=== PATIENT | female | born 1990 | race Caucasian/White ===

== ENCOUNTER 2016-09-24 07:30 | Inpatient (IN) | payer MEDICAID, OTHER ==
[~2016-09-24] VITALS: Ht 154.9 cm; Wt 68.1 kg
[~2016-09-24 07:30] MED LIST: CEFAZOLIN 2 GM/50 ML (PMX) 50 ML IVPB ONE; LACTATED RINGER'S 1,000 ML IV* SCH
[2016-09-25] VITALS (26 sets, daily range): BP systolic 118–147; BP diastolic 73–88; PULSE 67–110; RESP 14–25; Ht 154.9 cm; Wt 68.1 kg
[2016-09-25] MEDS ORDERED: CEFAZOLIN 2 GM/50 ML (PMX) 50 ML IVPB ONE (06:00)
[2016-09-25] MEDS ORDERED: LACTATED RINGER'S 1,000 ML IV* SCH (06:00)
--- NOTE | 2016-09-25 07:27 | RADRPT ---
PROCEDURE: CT C-Spine without Contrast CLINICAL INDICATION: Preop TECHNIQUE: Transaxial images were obtained through the cervical spine on a multi sliced scanner wit hout contrast. Sagittal and coronal re-formations were subsequently reformatted. One or more of the following dose reduction techniques were used: - Automated exposure control. - Adjustment of the mA and/or kV according to patient size. - Use of iterative reconstruction technique. Radiation dose: CTDIvol = 21.61 mGy; DLP = 576.33 mGy-cm. COMPARISON: None FINDINGS: Osseous structures: Appear intact with no fracture or destructive process identified. Alignment: Align satisfactorily without subluxation. Disk spaces, endplates, and facet joints: Are well maintained. No significant disk bulge or herniat ion is identified. There is no significant stenosis to the central canal hour to a nerve root canal. Soft tissues: Are unremarkable. IMPRESSION: Unremarkable CT scan of the cervical spine. Physician Edmundo Date Time Electronically viewed and signed by Physician Edmundo on 09/25/2016 07:26 /
[2016-09-25] MEDS ORDERED: GELATIN SIZE 100 SPONGE ONE (07:38)
[2016-09-25] MEDS ORDERED: BUPIVACAINE 0.25% (MPF) 10 ML 10 ML VIAL ONE (07:38)
[2016-09-25] MEDS ORDERED: LIDOCAINE 1% (MPF) 30 ML INJ ONE (07:38)
[2016-09-25] MEDS ORDERED: BACITRACIN/POLYMYXIN 28.35 GM OINT TOP ONE (07:39)
[2016-09-25] MEDS ORDERED: POLYMYXIN/BACITRACIN 1L IRRIG ONE (07:39)
[2016-09-25] MEDS ORDERED: THROMBIN 5000 UNIT VIAL ONE (07:39)
[2016-09-25] MEDS ORDERED: BUPIVACAINE 0.25%/EPI (SDV) 10 ML INJ ONE (07:40)
[2016-09-25] MEDS ORDERED: ROCURONIUM 50 MG INJ ONE ×3 (07:52→10:39)
[2016-09-25] MEDS ORDERED: MIDAZOLAM 1 MG/ML 2 ML INJ ONE (07:52)
[2016-09-25] MEDS ORDERED: PROPOFOL 100 ML ONE ×4 (07:52→13:56)
[2016-09-25] MEDS ORDERED: SUCCINYLCHOLINE CHLORIDE 100 MG/5 ML SYG IV ONE (07:52)
--- NOTE | 2016-09-25 07:56 | HPN ---
Date/Time of Note Date/Time of Note DATE: 09/25/16 TIME: 07:55 Interval H&P Admission Note Pt. seen H&P reviewed: No system changes BRE RODRIGUEZ MD Sep 25, 2016 07:56
[2016-09-25] MEDS ORDERED: NORT10CA3 PO (08:04)
[2016-09-25] MEDS ORDERED: TOPI50CA5 PO (08:04)
[2016-09-25] MEDS ORDERED: OXYC500S2 PO (08:04)
--- NOTE | 2016-09-25 08:07 | HP ---
Date/Time of Note Date/Time of Note DATE: 09/25/16 TIME: 07:58 Assessment/Plan VTE Prophylaxis VTE Prophylaxis Intervention: anti-embolic stocking Lines/Catheters IV Catheter Type (from Nrs): Saline Lock Assessment/Plan Chief Complaint/Hosp Course 26 year-old female with right C2 schwannoma. OR today for resection, possible fusion. 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 The right tumor is large and encroaching upon the spinal cord. Patient denies any numbness, tingling, weakness, bowel or bladder issues. She reports some right sided neck discomfort. ROS Constitutional: no complaints Eyes: no complaints ENT: no complaints Respiratory: no complaints Cardiovascular: no complaints Gastrointestinal: no complaints Genitourinary: no complaints Musculoskeletal: neck pain, no complaints Skin: no complaints Neurologic: headache Endocrine: no complaints Lymphatic: no complaints Psychological: no complaints Immunologic: no complaints PMH/Family/Social Past Medical History Medical History: other (chronic headaches as child) Past Surgical History Past Surgical Hx: no surgical history Family History Significant Family History: no pertinent family hx, other (no history of bleeding disorders or nerve sheath tumors) Social History Alcohol Use: none Smoking Status: Never smoker Drug Use: none Exam/Review of Systems Vital Signs Vitals Vital Signs Date Time Temp Pulse Resp B/P Pulse Ox O2 Delivery O2 Flow Rate FiO2 09/25/16 07:01 96.9 78 20 124/82 100 Room Air Exam Constitutional: alert, oriented Psych: no complaints Head: normocephalic Eyes: EOMI, PERRL, nl conjunctiva Neck: other (mild right sided tenderness), supple Respiratory: clear to auscultation Cardiovascular: regular rate and rhythm Gastrointestinal: non-tender, soft Extremities: normal pulses Neurological: RESOURCE DEVELOPMENT DIRECTOR II-XII intact, DTR's symmetric, nl mental status, nl speech, nl strength, other Medications Medications Current Medications Lactated Ringer's (Lr) 1,000 ml @ 85 mls/hr [id number] IV* ; Start 09/25/16 at 06: 00; Stop 09/25/16 at 17:45 Home medications: Topamax, Percocet, Nortriptyline BRE RODRIGUEZ MD Sep 25, 2016 08:07
[2016-09-25] MEDS ORDERED: LABETALOL HCL 20MG INJ ONE (09:09)
[2016-09-25] MEDS ORDERED: CEFAZOLIN 1 GM INJ ONE ×3 (09:47→14:55)
[2016-09-25] MEDS ORDERED: NEOSTIGMINE 3 MG/3 ML SYRINGE ONE (10:55)
[2016-09-25] MEDS ORDERED: GLYCOPYRROLATE 0.4 MG INJ ONE (10:55)
[2016-09-25] MEDS ORDERED: METOCLOPRAMIDE 10 MG INJ ONE (12:08)
[2016-09-25] MEDS ORDERED: ONDANSETRON 4 MG INJ ONE (12:08)
[2016-09-25] MEDS ORDERED: DEXAMETHASONE 4 MG/ML 1 ML INJ ONE ×2 (12:09)
[2016-09-25] MEDS ORDERED: THROMBIN(HUM PLAS)/FIBRINOG/CA 5 ML VIAL TOP ONE (14:47)
--- NOTE | 2016-09-25 15:05 | RADRPT ---
Vent Rate: 71 bpm RR Interval: 0 msec [place] Interval: 126 msec QRS Duration: 100 msec QT Interval: 412 msec QTC Interval: 447 msec P-R-T [place]: 50 - 54 - 49 degrees Normal sinus rhythm Normal ECG Electronically Signed By: Pipo Wilson [id number]
--- NOTE | 2016-09-25 15:18 | RADRPT ---
PROCEDURE: Intraoperative fluoroscopy. CLINICAL INDICATION: Intraoperative fluoroscopy during cervical spine surgery. TECHNIQUE: 1 spot intraoperative fluoroscopic images were provided. The images were reviewed on a high-resolution PACS workstation. COMPARISON: None available FINDINGS: Multiple spot intraoperative fluoroscopic views were provided during cervical spine surgery. The im ages demonstrate metallic instrumentation projected C3 level. The total fluoroscopy time was 1.2 se conds. IMPRESSION: 1. Multiple spot intraoperative fluoroscopic views during cervical spine surgery were provided. 2. Please see operative report of the same day for further information. RPTAT: HGAS .Neal Gibson MD, Date Time Electronically viewed and signed by .Neal Gibson MD, on 09/25/2016 15:18 .S/
[2016-09-25] MEDS ORDERED: DIPHENHYDRAMINE 50 MG INJ IV PRN ×2 (15:30→18:30)
[2016-09-25] MEDS ORDERED: DIPHENHYDRAMINE 25 MG CAP PO PRN (15:30)
[2016-09-25] MEDS ORDERED: ACETAMINOPHEN 325 MG TAB PO PRN (15:30)
[2016-09-25] MEDS ORDERED: HYDROCODONE/APAP (5/325) TAB PO PRN (15:30)
[2016-09-25] MEDS ORDERED: CEPASTAT LOZENGE MT PRN (15:30)
--- NOTE | 2016-09-25 15:35 | OPPN ---
Date/Time of Note Date/Time of Note DATE: 09/25/16 TIME: 15:33 Operative Report Preoperative Diagnosis Right C2 schwannoma Postoperative Diagnosis Right C2 schwannoma Operation/Procedure Performed C1,C2 laminectomy for resection of schwannoma Provider: BRE RODRIGUEZ MD Anesthesia: general Estimated blood loss: 50 - 100 ml's Specimens tumor Grafts/Implants none Complications: None BRE RODRIGUEZ MD Sep 25, 2016 15:34
[2016-09-25] MEDS: morphine 4 MG/ML VIAL IV PRN ×4 (16:10→21:46)
[2016-09-25] MEDS: SOD CHLORIDE 0.9% 1,000 ML IV SCH (16:15)
[2016-09-25] MEDS: HYDROmorphONE 1 MG/ML SYG IV PRN (17:27)
[2016-09-25] MEDS: CEFAZOLIN 2 GM/50 ML (PMX) 50 ML IVPB SCH (17:36)
--- NOTE | 2016-09-25 18:00 | CONS ---
Date/Time of Note Date/Time of Note DATE: 09/25/16 TIME: 17:59 Assessment/Plan Assessment/Plan Chief Complaint/Hosp Course A/P S/P C2 SCHWANNOMA RESECTION PLAN PER SURGERY Problems: Consultation Date/Type/Reason Admit Date/Time Sep 25, 2016 at 05:50 Initial Consult Date Type of Consultation: MEDICINE 24 HR Interval Summary Constitutional: no complaints Exam/Review of Systems Vital Signs Vitals Vital Signs Date Time Temp Pulse Resp B/P Pulse Ox O2 Delivery O2 Flow Rate FiO2 09/25/16 16:30 99 25 141/81 97 09/25/16 16:00 99.6 Mask 6.0 Exam Neck: other (COLLAR+), supple Respiratory: clear to auscultation Cardiovascular: regular rate and rhythm Gastrointestinal: soft Musculoskeletal: nl extremities to inspection Extremities: normal pulses Neurological: TELEPHONE ADVICE NURSE II-XII intact Medications Medications Current Medications Cefazolin Sodium/ Dextrose (Ancef 2 Gm/50 ml (Pmx)) 50 ml @ 100 mls/hr Q8H IVPB Last administered on 09/25/16 17:36; Admin Dose 100 MLS/HR; Start 09/25/16 at 17:00; Stop 09/26/16 at 16:59 Hydromorphone HCl (Dilaudid) 0.5 mg Q6H PRN IV PAIN LEVEL 6-10 Last administered on 09/25/16 17:27; Admin Dose 0.5 MG; Start 09/25/16 at 15:30 Morphine Sulfate (morphine) 2 mg Q2H PRN IV PAIN LEVEL 6-10 Last administered on 09/25/16 16:10; Admin Dose 2 MG; Start 09/25/16 at 15:30 Acetaminophen/ Hydrocodone Bitart ([place] (5/325)) 1 tab Q6H PRN PO PAIN LEVEL 6 -10; Start 09/25/16 at 15:30 Oxycodone/ Acetaminophen (Percocet (5/ 325)) 1 tab Q6H PRN PO PAIN LEVEL 6-10; Start 09/25/16 at 15:30 Acetaminophen (Tylenol Tab) 650 mg Q6H PRN PO PAIN AND OR ELEVATED TEMP; Start 09/25/16 at 15:30 Diphenhydramine HCl (Benadryl) 25 mg Q6H PRN IV ITCHING; Start 09/25/16 at 15:30 Diphenhydramine HCl (Benadryl) 25 mg Q6H PRN PO ITCHING; Start 09/25/16 at 15:30 Ondansetron HCl (Zofran Inj) 4 mg Q6H PRN IV NAUSEA AND/OR VOMITING; Start 09/25 at 15:30 Pantoprazole 40 mg 40 mg DAILY@06 PO ; Start 09/26/16 at 06:00 Sodium Chloride (NS) 1,000 ml @ 100 mls/hr Q10H IV Last administered on t 16:15; Admin Dose 100 MLS/HR; Start 09/25/16 at 16:00 Phenol (Cepastat Lozenge) 1 lozenge PRN PRN MT SORE THROAT; Start 09/25/16 at 15 :30 Diazepam (Valium) 5 mg TID PRN PO muscle spasm; Start 09/25/16 at 15:30 REJI RANGEL MD Sep 25, 2016 18:00
[2016-09-25] MEDS ORDERED: ALBUMIN HUMAN 5% 250 ML IV PRN (18:30)
[2016-09-25] MEDS ORDERED: LABETALOL HCL 20MG INJ IV PRN (18:30)
[2016-09-25] MEDS ORDERED: morphine 10 MG INJ IV PRN (18:30)
[2016-09-25] MEDS ORDERED: ONDANSETRON 4 MG INJ IV PRN (18:30)
[2016-09-25] MEDS ORDERED: MEPERIDINE 25 MG INJ IV PRN (18:30)
[2016-09-25] MEDS ORDERED: FENTAnyl 50 MCG/ML VIAL IV PRN ×3 (18:30)
[2016-09-25] MEDS ORDERED: morphine 4 MG/ML VIAL IV PRN ×2 (18:30)
[2016-09-25] MEDS ORDERED: EPHEDrine SULFATE 50 MG/5 ML SYG IV PRN (18:30)
[2016-09-25] MEDS: ONDANSETRON 4 MG INJ IV PRN (21:01)
[2016-09-25] MEDS: METOCLOPRAMIDE 10 MG INJ IV PRN (21:46)
[2016-09-26] VITALS (30 sets, daily range): BP systolic 96–132; BP diastolic 66–100; PULSE 60–96; RESP 12–22
[2016-09-26] MEDS: HYDROmorphONE 1 MG/ML SYG IV PRN ×3 (00:07→14:10)
[2016-09-26] MEDS: SOD CHLORIDE 0.9% 1,000 ML IV SCH ×3 (02:32→22:00)
[2016-09-26] MEDS: CEFAZOLIN 2 GM/50 ML (PMX) 50 ML IVPB SCH ×2 (02:32→08:00)
[2016-09-26] MEDS: morphine 4 MG/ML VIAL IV PRN ×2 (02:33→07:50)
[2016-09-26] MEDS: PANTOPRAZOLE (EC) 40 MG TAB PO SCH (06:00)
[2016-09-26 06:08] LABS: BASOPHILS % 0.1 % (0.0-2.0); EOSINOPHILS % 0.1 % (0.0-7.0); HEMATOCRIT 33.2 % (37.0-47.0); HEMOGLOBIN 11.6 g/dl (12.0-16.0); LYMPHOCYTES # 0.9 10^3/ul (0.8-2.9); LYMPHOCYTES % 11.6 % (15.0-51.0); MEAN CORPUSCULAR HEMOGLOBIN 31.4 pg (29.0-33.0); MEAN CORPUSCULAR HGB CONC 34.9 g/dl (32.0-37.0); MEAN PLATELET VOLUME 12.4 fl (7.4-10.4); MONOCYTE # 0.7 10^3/ul (0.3-0.9); MONOCYTES % 9.6 % (0.0-11.0); NEUTROPHIL # 5.8 10^3/ul (1.6-7.5); NEUTROPHILS % 78.3 % (39.0-77.0); PLATELET COUNT 148 10^3/UL (140-415); RED BLOOD COUNT 3.69 10^6/ul (4.20-5.40); RED CELL DISTRIBUTION WIDTH 12.7 % (11.5-14.5); WHITE BLOOD COUNT 7.4 10^3/ul (4.8-10.8)
[2016-09-26 06:38] LABS: CALCIUM 8.7 mg/dl (8.4-10.2); CREATININE 0.46 mg/dl (0.44-1.00)
[2016-09-26] MEDS: ONDANSETRON 4 MG INJ IV PRN ×2 (08:47→19:58)
--- NOTE | 2016-09-26 08:56 | PN ---
Date/Time of Note Date/Time of Note DATE: 09/26/16 TIME: 08:51 Assessment/Plan Lines/Catheters IV Catheter Type (from Nrsg): A Line Choi in Place (from Nrsg): Yes Assessment/Plan Chief Complaint/Hosp Course 26 year-old female s/p C1,C2 laminectomy for schwannoma. Neurologically stable. Mostly pain control issues. D/c A-line, D/C Choi. incentive spirometer. Cont. observation. Head CT if symptoms worse but otherwise stable and expected post-operative. CAn transfer from ICU to med/surg once pain better controlled. Problems: Subjective 24 Hr Interval Summary Patient c/o of incisional/neck pain/ discomfort. Denies numbness, tingling or weakness. Feels pre-op headache may be better but difficult to tell. Denies fevers or chills. Some nausea. Exam/Review of Systems Vital Signs Vitals Vital Signs Date Time Temp Pulse Resp B/P Pulse Ox O2 Delivery O2 Flow Rate FiO2 09/26/16 08:20 Nasal Cannula 2.0 09/26/16 06:15 69 18 127/72 100 09/26/16 04:00 98.7 Intake and Output 09/25/16 09/25/16 09/26/16 15:00 23:00 07:00 Intake Total 2850 ml 740 ml Output Total 1405 ml 600 ml Balance 1445 ml 140 ml Exam Constitutional: alert, oriented Psych: nl mood/affect Head: normocephalic Neck: other (incision C/d/I, no evidence of CSF leakage. No fluctance.) Neurological: TRAIN CONTROL TECHNICIAN II-XII intact, nl speech, nl strength Results Result Diagram: 09/26/16 0508 09/26/16 0508 BRE RODRIGUEZ MD Sep 26, 2016 08:55
[2016-09-26] MEDS ORDERED: ACETAMINOPHEN 1000MG/100ML IV 100 ML IVPB SCH (09:00)
[2016-09-26] MEDS: morphine 1 MG/ML 30 ML (PCA) IV SCH ×2 (10:05→18:40)
[2016-09-26] MEDS: ACETAMINOPHEN 1000MG/100ML IV 100 ML IVPB SCH ×3 (10:47→21:44)
--- NOTE | 2016-09-26 13:13 | CONS ---
Date/Time of Note Date/Time of Note DATE: 09/26/16 TIME: 13:11 Assessment/Plan Assessment/Plan Chief Complaint/Hosp Course 1. s/p C1,C2 laminectomy for schwannoma. 2. Obesity Problems: Additional Assessment/Plan 1. transfer to /s 2. Continue LIGHTING EQUIPMENT OPERATOR pump 3. Continue clear liquid diet Consultation Date/Type/Reason Admit Date/Time Sep 25, 2016 at 05:50 Initial Consult Date 09/25/2016 Type of Consultation: Nephrology Reason for Consultation Dr Deal 24 HR Interval Summary Constitutional: improved Exam/Review of Systems Vital Signs Vitals Vital Signs Date Time Temp Pulse Resp B/P Pulse Ox O2 Delivery O2 Flow Rate FiO2 09/26/16 09:18 98.6 09/26/16 09:00 76 16 116/82 98 09/26/16 08:20 Nasal Cannula 2.0 Intake and Output 09/25/16 09/25/16 09/26/16 15:00 23:00 07:00 Intake Total 2850 ml 740 ml Output Total 1405 ml 600 ml Balance 1445 ml 140 ml Exam Constitutional: alert, oriented ENMT: nl external ears & nose Neck: supple Respiratory: clear to auscultation Cardiovascular: regular rate and rhythm Gastrointestinal: soft Results Result Diagram: 09/26/16 0508 09/26/16 0508 Results 24 hrs Laboratory Tests Test 09/26/16 05:08 White Blood Count 7.4 Red Blood Count 3.69 L Hemoglobin 11.6 L Hematocrit 33.2 L Mean Corpuscular Volume 90.0 Mean Corpuscular Hemoglobin 31.4 Mean Corpuscular Hemoglobin Concent 34.9 Red Cell Distribution Width 12.7 Platelet Count 148 Mean Platelet Volume 12.4 H Neutrophils % 78.3 H Lymphocytes % 11.6 L Monocytes % 9.6 Eosinophils % 0.1 Basophils % 0.1 Nucleated Red Blood Cells % 0.0 Neutrophils # 5.8 Lymphocytes # 0.9 Monocytes # 0.7 Eosinophils # 0.0 Basophils # 0.0 Nucleated Red Blood Cells # 0.0 Sodium Level 140 Potassium Level 4.0 Chloride Level 104 Carbon Dioxide Level 22 Anion Gap 18 H Blood Urea Nitrogen 4 L Creatinine 0.46 Glucose Level 104 Calcium Level 8.7 Medications Medications Current Medications Cefazolin Sodium/ Dextrose (Ancef 2 Gm/50 ml (Pmx)) 50 ml @ 100 mls/hr Q8H IVPB Last administered on 09/26/16 08:00; Admin Dose 100 MLS/HR; Start 09/25/16 at 17:00; Stop 09/26/16 at 16:59 Hydromorphone HCl (Dilaudid) 0.5 mg Q6H PRN IV PAIN LEVEL 6-10 Last administered on 09/26/16 05:56; Admin Dose 0.5 MG; Start 09/25/16 at 15:30 Acetaminophen/ Hydrocodone Bitart ([place] (5/325)) 1 tab Q6H PRN PO PAIN LEVEL 6 -10; Start 09/25/16 at 15:30 Oxycodone/ Acetaminophen (Percocet (5/ 325)) 1 tab Q6H PRN PO PAIN LEVEL 6-10; Start 09/25/16 at 15:30 Acetaminophen (Tylenol Tab) 650 mg Q6H PRN PO PAIN AND OR ELEVATED TEMP; Start 09/25/16 at 15:30 Diphenhydramine HCl (Benadryl) 25 mg Q6H PRN IV ITCHING; Start 09/25/16 at 15:30 Diphenhydramine HCl (Benadryl) 25 mg Q6H PRN PO ITCHING; Start 09/25/16 at 15:30 Ondansetron HCl (Zofran Inj) 4 mg Q6H PRN IV NAUSEA AND/OR VOMITING Last administered on 09/26/16 08:47; Admin Dose 4 MG; Start 09/25/16 at 15:30 Pantoprazole 40 mg 40 mg DAILY@06 PO ; Start 09/26/16 at 06:00 Sodium Chloride (NS) 1,000 ml @ 100 mls/hr Q10H IV Last administered on 02:32; Admin Dose 100 MLS/HR; Start 09/25/16 at 16:00 Phenol (Cepastat Lozenge) 1 lozenge PRN PRN MT SORE THROAT; Start 09/25/16 at 15 :30 Diazepam (Valium) 5 mg TID PRN PO muscle spasm; Start 09/25/16 at 15:30 Metoclopramide HCl (Reglan) 10 mg Q6H PRN IV NAUSEA Last administered on 21:46; Admin Dose 10 MG; Start 09/25/16 at 21:30 Morphine Sulfate (morphine) 0 MG/HR CONTINUOUS RATE 1 ... Q4PCA IV Last administered on 09/26/16 10:05; Admin Dose 30 MG; Start 09/26/16 at 09:00 Ketorolac Tromethamine 30 mg 30 mg Q6H PRN IV PAIN; Start 09/26/16 at 09:00; Stop 09/29/16 at 08:59 Acetaminophen (Ofirmev 1000mg/ 100ml Iv) 100 ml @ 400 mls/hr Q6H IVPB Last administered on 09/26/16 10:47; Admin Dose 400 MLS/HR; Start 09/26/16 at 10:00 MARK GARCIA Sep 26, 2016 13:13
--- NOTE | 2016-09-26 13:36 | OPR ---
DATE OF OPERATION: 09/25/2016 PREOPERATIVE DIAGNOSIS: Bilateral nerve sheath tumors. POSTOPERATIVE DIAGNOSIS: Bilateral nerve sheath tumors. OPERATION PERFORMED: 1. C1 and C2 laminectomy for resection of right C2 schwannoma. 2. Use of frameless stereotactic guidance (spinal) SURGEON: Joe Ragsdale M.D. ANESTHESIOLOGIST: Parviz Fink M.D. ANESTHESIA: General endotracheal. ESTIMATED BLOOD LOSS: 80 mL. DRAINS: None. SPECIMEN: Collected tumor for frozen and permanent. GRAFT IMPLANTS: None. COMPLICATIONS: None. DISPOSITION: Recovery. INDICATIONS: Patient is a 25-year-old female with a history of childhood headaches that had recently exacerbated. MRI was performed which showed bilateral nerve sheath tumors with a large tumor on the right that appeared to extend and encroach upon the spinal cord. Although it was not clear whether or not this lesion was the source of the patient's headache, given its size and growth treatment was recommended. Radial surgical versus open treatment was discussed and patient elected for surgical treatment. The risks, benefits, and alternatives to surgical intervention were discussed with the patient who elected for surgery. OPERATIVE PROCEDURE: The patient was brought to the OR. She was sedated, intubated, and anesthesia was successfully induced. Electrophysiologic monitoring was performed baseline potentials established. Perioperative antibiotics were given. Choi catheter was placed. Sequential compression devices were placed. The patient was placed in a prone position on the operative table on log roll gel pads. The patient had been placed in a Gomez frame and this was secured to the bed with the neck in a slightly flexed position. All pressure points were checked for appropriate padding. The patient was sterilely prepped and draped. After a surgical timeout the procedure commenced. A 10 blade knife was used to make an incision from the suboccipital area down to the neck. Bovie electrocautery was used to dissect through an avascular plane, the midline ligamentum nuchae down to the spinous process of C2. Self- retaining retractors were placed. Fluoroscopy was used to confirm the C2 level. Subperiosteal dissection was carried forth along the C1 and C2 lamina laterally to the lateral masses and then self-retaining retractors were then placed. A curette and blunt dissection was used to remove the soft tissue and the muscle over the interspace between C1 and C2 on the right. As this was a widened space and the tumor was directly visible underneath the curette was used to undermine the soft tissue and ligament of C1 and C2. BrainLAB was used for localization and this was registered on the C2 lamina. This was primarily helpful in these the lateral extent of the laminectomy, as well as the evaluation of bone of facet joints. A posterior laminectomy of C1 was performed. A partial bilateral laminectomy of the superior aspect of the C2 was performed and the inferior aspect of C2 was left in place to expose the central part of the thecal sac. Blunt dissection was used to remove the vascularity over the midline thecal sac, and laterally over the nerve sheath tumor. The tumor was directly visible. At this point, a microscope was brought in for microdissection. Midline incision of the thecal sac was made and the sutures were used to tack up the dura. The spinal cord could be seen directly below with bunched up dorsal fascicles of the nerve root of C2 being compressed. There is also a bulge that appeared to be extrathecal (but intradural) from a nerve sheath tumor that had grown medially, hence there did not appear to be a clear intrathecal component of the tumor, rather it appeared to be entirely extrathecal; nevertheless this had developed to involve the left side of the thecal sac. There was some envelopement of the dural interface to the nerve sheath of the tumor. Therefore, a T-type incision was made lateral along the length of the nerve sheath. This was initially carried from the thecal sac toward the nerve sheath, but there was an infolding, therefore a direct opening on the nerve sheath was made leaving the connection of the nerve sheath attached. This was because the takeoff of the nerve sheath appeared to be ventral and anterior to the posterior dentate ligament apparently due to tumor growth had rotated such that the takeoff of the nerve root was almost on the underside of the thecal sac when viewed posteriorly. There was some thickening of the nerve sheath and dura, but underneath there appeared to be clear tumor. A CUSA was brought in and the majority of the tumor that was external decavitated. At this point, the tumor that had been pushing anteriorly had appeared to be relieved, though again the tumor still effaced the dura of the lateral wall of thecal sac. A larger piece of the more lateral aspect of the tumor and the nerve sheath was able to be removed en bloc as one solid piece. There appeared to be some thickening distally on the nerve sheath though internally there did not appear to be any clear tumor left. Now working laterally than medially additional tumor was removed up to the interface of the thecal sac. Because of the location of the tumor on the thecal sac, it was felt that the dura would have to be completely incised to remove the tumor and given the location there was concern that this would be difficult if not reasonably possible to repair from an internal approach due to the presence of the spinal cord. Given the significant debulking and biopsy which the pathologist has determined was consistent with schwannoma it was felt best to leave any residual which could later be treated with radiosurgery given the significant decompression already achieved. The dura was closed with 5-0 Prolene on the microscope starting with the transverse incision that led through the nerve sheath and then the midline closed as well. Multiple Valsalva showed no significant drainage of fluid. Then the actual residual capsular dura was closed with 5-0 Prolene. Valsalva again performed and there was no evidence of CSF leak. The wound was copiously irrigated with bacitracin irrigation and then DuraSeal placed over the dura, as well as EvoSeal more laterally. The incision was then closed with 0 Vicryl suture and the fascia 2-0 interrupted Vicryl sutures subcutaneous tissue and 3-0 interrupted Vicryl sutures in the subcuticular layer, as well as a running 4-0 Monocryl suture. Dermabond was placed. Incision, allowed to dry. Sterile dressing applied. The patient was taken off the table, taken out of [place] and extubated. She was taken directly to the ICU. All sponge, needle, and cottonoid counts were reported correct at the end of the case. Electrophysiologic monitoring remained stable throughout the case. Dictated By: Joe Ragsdale MD /[email or web address] /Document#: [id number] EDUARD
[2016-09-26] MEDS: METOCLOPRAMIDE 10 MG INJ IV PRN (14:16)
[2016-09-26] MEDS: DIAZEPAM 5 MG TAB PO PRN (16:11)
--- NOTE | 2016-09-26 16:37 | QN ---
Documentation Comment [id number] REJI RANGEL MD Sep 26, 2016 16:37
--- NOTE | 2016-09-26 20:51 | HP ---
DATE OF ADMISSION: 09/25/2016 HISTORY OF PRESENT ILLNESS: The patient is a 26-year-old female with history of schwannoma of the neck. The patient underwent bilateral nerve sheath tumor schwannoma. The patient underwent right revision C1 and C2 laminectomy, resection of the right C3 schwannoma, and is being seen post procedure. The patient is complaining of pain in the neck area, but otherwise denies numbness and tingling. PAST MEDICAL HISTORY: Per family member, the patient is negative. ALLERGIES: NEGATIVE. FAMILY HISTORY: Noncontributory. SOCIAL HISTORY: None. MEDICATIONS: At home, the patient is on nortriptyline, the patient is on oxycodone, the patient is on Topamax. REVIEW OF SYSTEMS: HEENT: Unremarkable. RESPIRATORY: Unremarkable. CARDIOVASCULAR: Unremarkable. GASTROINTESTINAL: Unremarkable. EXTREMITIES: No numbness or tingling pain. NEUROLOGIC: Pain in the back/neck area. VERIFICATION LEAD: As mentioned above. PHYSICAL EXAMINATION: GENERAL: The patient is awake, alert, not in any distress. VITAL SIGNS: Stable. HEENT: Head is atraumatic, normocephalic. Pupils equal and reactive. NECK: No JVD. Neck has no edema. LUNGS: Clear. HEART: Normal. ABDOMEN: Soft, nontender. Bowel sounds present. EXTREMITIES: No cyanosis, clubbing, edema. NEUROLOGIC: The patient is awake, alert, no focal deficits. LABORATORY DATA: Not available. IMPRESSION: 1. Status post C1 and C2 schwannoma revision. 2. History of depression. PLAN: At this point is to follow dr gravelypostoperative care, follow laboratory data, incentive spirometry, DVT prophylaxis, orders were done. Dictated By: Sammy Deal MD /[email or web address]/katrina /Document#: [id number] EDUARD
[2016-09-27] MEDS: KETOROLAC 30 MG INJ IV PRN ×3 (00:16→22:19)
[2016-09-27] MEDS: SOD CHLORIDE 0.9% 1,000 ML IV SCH ×3 (01:38→17:25)
[2016-09-27 03:54] VITALS: BP 110/70; RESP 20
[2016-09-27] MEDS: PANTOPRAZOLE (EC) 40 MG TAB PO SCH (05:11)
[2016-09-27] MEDS: ACETAMINOPHEN 1000MG/100ML IV 100 ML IVPB SCH ×4 (05:11→21:38)
[2016-09-27] MEDS: morphine 1 MG/ML 30 ML (PCA) IV SCH (07:28)
[2016-09-27 07:47] VITALS: BP 110/71; RESP 20
[2016-09-27 08:16] LABS: CALCIUM 8.3 mg/dl (8.4-10.2); CREATININE 0.57 mg/dl (0.44-1.00); POTASSIUM 3.5 mmol/L (3.5-5.1)
--- NOTE | 2016-09-27 10:04 | PN ---
Date/Time of Note Date/Time of Note DATE: 09/27/16 TIME: 09:59 Assessment/Plan Lines/Catheters IV Catheter Type (from Nrsg): Saline Lock Choi in Place (from Nrsg): Yes Assessment/Plan Chief Complaint/Hosp Course 26 year-old female s/p C1,C2 laminectomy for schwannoma. Neurologically stable. Mostly pain control issues. incentive spirometer. Bowel program. PT/OT. Ambulate. Ween COURIER Will order more comfortable collar from credit card associate. Problems: Subjective 24 Hr Interval Summary Patient complaining of some headache but not as severe as pre-op, different. Denies numbness, tingling weakness. Reports neck pain but better than yesterday and shoulder pain with movement. Exam/Review of Systems Vital Signs Vitals Vital Signs Date Time Temp Pulse Resp B/P Pulse Ox O2 Delivery O2 Flow Rate FiO2 09/27/16 08:00 18 09/27/16 07:47 98.1 79 110/71 100 09/26/16 14:30 Room Air 09/26/16 08:20 2.0 Intake and Output 09/26/16 09/26/16 09/27/16 15:00 23:00 07:00 Intake Total 650 ml 620 ml 2110 ml Output Total 350 ml Balance 300 ml 620 ml 2110 ml Exam Constitutional: alert, oriented, well developed Head: atraumatic, normocephalic Neck: nuchal rigidity, other (incision C/d/I no drainage or swelling) Neurological: DIRECTOR AND PROFESSOR II-XII intact, nl mental status, nl speech, nl strength Results Result Diagram: 09/26/16 0508 09/27/16 0652 BRE RODRIGUEZ MD Sep 27, 2016 10:04
[2016-09-27] MEDS: ONDANSETRON 4 MG INJ IV PRN (10:15)
[2016-09-27] MEDS: OXYCODONE/ACETAMINOPHEN (5/325) TAB PO PRN ×2 (10:15→17:53)
[2016-09-27] MEDS: METOCLOPRAMIDE 10 MG INJ IV PRN (11:57)
--- NOTE | 2016-09-27 18:30 | PN ---
Date/Time of Note Date/Time of Note DATE: 09/27/16 TIME: 18:29 Assessment/Plan VTE Prophylaxis VTE Prophylaxis Intervention: other Lines/Catheters IV Catheter Type (from Nrsg): Saline Lock Urinary Cath still in place: Yes Reason Cath still needed: other (indicate) Assessment/Plan Chief Complaint/Hosp Course A/P S/P C2 SCHWANNOMA RESECTION NECK PAIN PLAN PER SURGERY AMBULATE PAIN MEDS Problems: Subjective 24 Hr Interval Summary Constitutional: other (NECK PAIN+) Cardiovascular: no complaints Gastrointestinal: no complaints Exam/Review of Systems Vital Signs Vitals Vital Signs Date Time Temp Pulse Resp B/P Pulse Ox O2 Delivery O2 Flow Rate FiO2 09/27/16 17:00 18 09/27/16 07:47 98.1 79 110/71 100 09/26/16 14:30 Room Air 09/26/16 08:20 2.0 Intake and Output 09/26/16 09/26/16 09/27/16 15:00 23:00 07:00 Intake Total 650 ml 620 ml 2110 ml Output Total 350 ml Balance 300 ml 620 ml 2110 ml Exam Respiratory: clear to auscultation Cardiovascular: regular rate and rhythm Gastrointestinal: soft Musculoskeletal: nl extremities to inspection Results Result Diagram: 09/26/16 0508 09/27/16 0652 Results 24 hrs Laboratory Tests Test 09/27/16 06:52 Sodium Level 140 Potassium Level 3.5 Chloride Level 102 Carbon Dioxide Level 27 Anion Gap 15 Blood Urea Nitrogen 3 L Creatinine 0.57 Glucose Level 93 Calcium Level 8.3 L Medications Medications Current Medications Hydromorphone HCl (Dilaudid) 0.5 mg Q6H PRN IV PAIN LEVEL 6-10 Last administered on 09/26/16 14:10; Admin Dose 0.5 MG; Start 09/25/16 at 15:30 Acetaminophen/ Hydrocodone Bitart ([place] (5/325)) 1 tab Q6H PRN PO PAIN LEVEL 6 -10; Start 09/25/16 at 15:30 Oxycodone/ Acetaminophen (Percocet (5/ 325)) 1 tab Q6H PRN PO PAIN LEVEL 6-10 Last administered on 09/27/16 17:53; Admin Dose 1 TAB; Start 09/25/16 at 15:30 Acetaminophen (Tylenol Tab) 650 mg Q6H PRN PO PAIN AND OR ELEVATED TEMP Last administered on 09/26/16 18:05; Admin Dose 650 MG; Start 09/25/16 at 15:30 Diphenhydramine HCl (Benadryl) 25 mg Q6H PRN IV ITCHING Last administered on 18:14; Admin Dose 25 MG; Start 09/25/16 at 15:30 Diphenhydramine HCl (Benadryl) 25 mg Q6H PRN PO ITCHING Last administered on 21:49; Admin Dose 25 MG; Start 09/25/16 at 15:30 Ondansetron HCl (Zofran Inj) 4 mg Q6H PRN IV NAUSEA AND/OR VOMITING Last administered on 09/27/16 10:15; Admin Dose 4 MG; Start 09/25/16 at 15:30 Pantoprazole 40 mg 40 mg DAILY@06 PO Last administered on 09/27/16 05:11; Admin Dose 40 MG; Start 09/26/16 at 06:00 Sodium Chloride (NS) 1,000 ml @ 100 mls/hr Q10H IV Last administered on 01:38; Admin Dose 100 MLS/HR; Start 09/25/16 at 16:00 Phenol (Cepastat Lozenge) 1 lozenge PRN PRN MT SORE THROAT; Start 09/25/16 at 15 :30 Diazepam (Valium) 5 mg TID PRN PO muscle spasm Last administered on 09/26/16 16 :11; Admin Dose 5 MG; Start 09/25/16 at 15:30 Metoclopramide HCl (Reglan) 10 mg Q6H PRN IV NAUSEA Last administered on 11:57; Admin Dose 10 MG; Start 09/25/16 at 21:30 Morphine Sulfate (morphine) 0 MG/HR CONTINUOUS RATE 1 ... Q4PCA IV Last administered on 09/27/16 07:28; Admin Dose 30 MG; Start 09/26/16 at 09:00 Ketorolac Tromethamine 30 mg 30 mg Q6H PRN IV PAIN Last administered on 13:14; Admin Dose 30 MG; Start 09/26/16 at 09:00; Stop 09/29/16 at 08:59 Acetaminophen (Ofirmev 1000mg/ 100ml Iv) 100 ml @ 400 mls/hr Q6H IVPB Last administered on 09/27/16t 15:36; Admin Dose 400 MLS/HR; Start 09/26/16 at 10:00 Docusate Sodium (Colace) 100 mg BID PO ; Start 09/27/16 at 21:00 REJI RANGEL MD Sep 27, 2016 18:30
[2016-09-27 20:00] VITALS: BP 127/79; RESP 18
[2016-09-27] MEDS: DIAZEPAM 5 MG TAB PO PRN (20:59)
[2016-09-27] MEDS: DOCUSATE SODIUM 100 MG CAP PO SCH (20:59)
[2016-09-28] MEDS: OXYCODONE/ACETAMINOPHEN (5/325) TAB PO PRN (01:03)
[2016-09-28 01:08] VITALS: BP 98/53; PULSE 85; RESP 18
[2016-09-28] MEDS: morphine 1 MG/ML 30 ML (PCA) IV SCH (03:10)
[2016-09-28] MEDS: SOD CHLORIDE 0.9% 1,000 ML IV SCH ×2 (04:00→14:00)
[2016-09-28] MEDS: ACETAMINOPHEN 1000MG/100ML IV 100 ML IVPB SCH ×3 (04:07→16:00)
[2016-09-28] MEDS: KETOROLAC 30 MG INJ IV PRN (05:42)
[2016-09-28] MEDS: PANTOPRAZOLE (EC) 40 MG TAB PO SCH (05:42)
[2016-09-28] MEDS ORDERED: LABETALOL HCL 20MG INJ ONE (08:00)
[2016-09-28] MEDS ORDERED: SEVOFLURANE 15 MIN ONE (08:00)
[2016-09-28] MEDS: DOCUSATE SODIUM 100 MG CAP PO SCH (08:12)
[2016-09-28] MEDS: HYDROCODONE/APAP (10/325) TAB PO PRN ×3 (08:12→16:21)
--- NOTE | 2016-09-28 08:12 | PN ---
Date/Time of Note Date/Time of Note DATE: 09/28/16 TIME: 08:10 Assessment/Plan Lines/Catheters IV Catheter Type (from Nrsg): Saline Lock Choi in Place (from Nrsg): No Assessment/Plan Chief Complaint/Hosp Course 26 year-old female s/p C1,C2 laminectomy for schwannoma. Neurologically stable. Mostly pain control issues, improving. D/C [employer] incentive spirometer. Bowel program. PT/OT. Ambulate. If pain controlled of IV, home today. f/u in 2 weeks. Problems: Subjective 24 Hr Interval Summary Patient feeling better today. Still has headache and neck pain but reports feeling less. Denies nausea, vomiting, numbness, tingling or weakness. Feels new hard collar more comfortable. Exam/Review of Systems Vital Signs Vitals Vital Signs Date Time Temp Pulse Resp B/P Pulse Ox O2 Delivery O2 Flow Rate FiO2 09/28/16 05:48 18 09/28/16 01:08 98.1 85 98/53 95 Room Air 09/26/16 08:20 2.0 Intake and Output 09/27/16 09/27/16 09/28/16 15:00 23:00 07:00 Intake Total 500 ml 2700 ml 625 ml Output Total 1200 ml Balance 500 ml 2700 ml -575 ml Exam Constitutional: alert, oriented, well developed Head: normocephalic Eyes: EOMI Neurological: [employer] II-XII intact, nl mental status, nl speech, nl strength Results Result Diagram: 09/26/16 0508 09/27/16 0652 BRE RODRIGUEZ MD Sep 28, 2016 08:12
[2016-09-28 08:16] VITALS: BP 114/79; RESP 19
--- NOTE | 2016-09-28 08:47 | RADRPT ---
PROCEDURE: CT Brain without contrast. CLINICAL INDICATION: Neurologic deficit TECHNIQUE: A CT of the brain was performed on multidetector high-resolution CT scanner utilizing a xial sections from the skull base through the vertex without contrast. One or more of the following dose reduction techniques were used: Automated exposure control, Adjustment of the mA and/or kV acc ording to patient size, and/or use of iterative reconstruction technique. DOSE: CTDI = 43 mGy and the DLP = 720 mGy-cm. COMPARISON: None available FINDINGS: Partially imaged posterior arch C1 resection with fluid collection in the dorsal soft tissues of the upper cervical spine at the surgical site measuring at least 2.7 x 3.5 cm. Small amount of pneumoce phalus is seen in the bilateral frontal extra-axial space. No acute intracranial hemorrhage, signifi cant mass effect or midline shift. The cerebral silva-white differentiation is grossly preserved. The ventricles are normal in size for age. No significant opacification of the visualized paranasal sin uses or mastoids. IMPRESSION: Partially imaged posterior arch C1 resection with fluid collection in the dorsal soft tissues of the upper cervical spine at the surgical site measuring at least 2.7 x 3.5 cm. Small amount of pneumocephalus is seen in the bilateral frontal extra-axial space. No acute intracranial hemorrhage, significant mass effect or midline shift. RPTAT: AA .Konrad Gustafson MD, MD Date Time Electronically viewed and signed by .Konrad Gustafson MD, MD on 09/28/2016 08:47 .T/
[2016-09-28] MEDS: DIAZEPAM 5 MG TAB PO PRN ×2 (09:05→12:51)
--- NOTE | 2016-09-28 11:41 | CONS ---
Date/Time of Note Date/Time of Note DATE: 09/28/16 TIME: 11:39 Assessment/Plan Assessment/Plan Chief Complaint/Hosp Course 1. s/p C1,C2 laminectomy for schwannoma. 2. Obesity Problems: Additional Assessment/Plan 1. Po pain meds today 2. PT/OT 3. D/C home if pain controlled and cleared by PT/OT and Dr Ragsdale with f/u in 2 weeks. Problems: Consultation Date/Type/Reason Admit Date/Time Sep 25, 2016 at 05:50 Initial Consult Date Type of Consultation: Nephrology 24 HR Interval Summary Free Text/Dictation Pt had CT scan today Off [employer] pump, walked with PT Awaiting OT Exam/Review of Systems Vital Signs Vitals Vital Signs Date Time Temp Pulse Resp B/P Pulse Ox O2 Delivery O2 Flow Rate FiO2 09/28/16 09:00 18 09/28/16 08:16 97.5 79 114/79 96 09/28/16 01:08 Room Air 09/26/16 08:20 2.0 Intake and Output 09/27/16 09/27/16 09/28/16 15:00 23:00 07:00 Intake Total 500 ml 2700 ml 625 ml Output Total 1200 ml Balance 500 ml 2700 ml -575 ml Exam Constitutional: alert, oriented ENMT: nl external ears & nose Neck: supple, neck collar Respiratory: clear to auscultation Cardiovascular: regular rate and rhythm Gastrointestinal: soft Ext : no edema Results Result Diagram: 09/26/16 0508 09/27/16 0652 Results 24 hrs Laboratory Tests Test 09/28/16 08:02 Lab Scanned Report REFERENCE LAB Medications Medications Current Medications Hydromorphone HCl (Dilaudid) 0.5 mg Q6H PRN IV PAIN LEVEL 6-10 Last administered on 09/26/16 14:10; Admin Dose 0.5 MG; Start 09/25/16 at 15:30 Acetaminophen/ Hydrocodone Bitart ([place] (5/325)) 1 tab Q6H PRN PO PAIN LEVEL 6 -10; Start 09/25/16 at 15:30 Oxycodone/ Acetaminophen (Percocet (5/ 325)) 1 tab Q6H PRN PO PAIN LEVEL 6-10 Last administered on 09/28/16 01:03; Admin Dose 1 TAB; Start 09/25/16 at 15:30 Acetaminophen (Tylenol Tab) 650 mg Q6H PRN PO PAIN AND OR ELEVATED TEMP Last administered on 09/26/16 18:05; Admin Dose 650 MG; Start 09/25/16 at 15:30 Diphenhydramine HCl (Benadryl) 25 mg Q6H PRN IV ITCHING Last administered on 18:14; Admin Dose 25 MG; Start 09/25/16 at 15:30 Diphenhydramine HCl (Benadryl) 25 mg Q6H PRN PO ITCHING Last administered on 21:49; Admin Dose 25 MG; Start 09/25/16 at 15:30 Ondansetron HCl (Zofran Inj) 4 mg Q6H PRN IV NAUSEA AND/OR VOMITING Last administered on 09/27/16 10:15; Admin Dose 4 MG; Start 09/25/16 at 15:30 Pantoprazole 40 mg 40 mg DAILY@06 PO Last administered on 09/28/16 05:42; Admin Dose 40 MG; Start 09/26/16 at 06:00 Sodium Chloride (NS) 1,000 ml @ 100 mls/hr Q10H IV Last administered on 01:38; Admin Dose 100 MLS/HR; Start 09/25/16 at 16:00 Phenol (Cepastat Lozenge) 1 lozenge PRN PRN MT SORE THROAT; Start 09/25/16 at 15 :30 Diazepam (Valium) 5 mg TID PRN PO muscle spasm Last administered on 09/28/16 09 :05; Admin Dose 5 MG; Start 09/25/16 at 15:30 Metoclopramide HCl (Reglan) 10 mg Q6H PRN IV NAUSEA Last administered on 11:57; Admin Dose 10 MG; Start 09/25/16 at 21:30 Ketorolac Tromethamine 30 mg 30 mg Q6H PRN IV PAIN Last administered on 05:42; Admin Dose 30 MG; Start 09/26/16 at 09:00; Stop 09/29/16 at 08:59 Acetaminophen (Ofirmev 1000mg/ 100ml Iv) 100 ml @ 400 mls/hr Q6H IVPB Last administered on 09/28/16 09:05; Admin Dose 400 MLS/HR; Start 09/26/16 at 10:00 Docusate Sodium (Colace) 100 mg BID PO Last administered on 09/28/16 08:12; Admin Dose 100 MG; Start 09/27/16 at 21:00 Acetaminophen/ Hydrocodone Bitart ([place] (10/325)) 1 tab Q4H PRN PO PAIN Last administered on 09/28/16 08:12; Admin Dose 1 TAB; Start 09/28/16 at 08:00 ZEE ARTEAGA MD Sep 28, 2016 11:40
--- NOTE | 2016-09-28 11:48 | PDOCDIS ---
Discharge Instructions CONDITION Patient Condition: Good HOME CARE INSTRUCTIONS: Diet Instructions: Regular ACTIVITY: Activity Restrictions: Avoid heavy lifting Do not Drive Avoid Heavy Housework FOLLOW UP/APPOINTMENTS Follow-up Plan f/u with Dr Ragsdale in 2 weeks ZEE ARTEAGA MD Sep 28, 2016 11:48
[2016-09-28] MEDS ORDERED: Hydrocodone/Apap (10/325) PO (11:52)
[2016-09-28] MEDS ORDERED: DOCU-216 PO (11:52)
[2016-09-28] MEDS ORDERED: DIAZ5TAB4 PO (11:52)
[2016-09-28] MEDS: ONDANSETRON 4 MG INJ IV PRN (14:33)
== END 2016-09-28 18:35 | disposition home health service (06) | DRG 517 ==
LOC: REC 09-25 05:50 → ICU 09-25 15:51 → MS1 09-26 14:34
PROVIDERS: ADMIT Neurological Surgery; ATTEND Neurological Surgery
PROC: 01B Peripheral Nervous System, Excision (ICD-10-PCS; principal; 2016-09-25 08:00)
DX: D36.11 Benign neoplasm of peripheral nerves and autonomic nervous system of face, head, and neck (principal); E66.9 Obesity, unspecified
CPT/HCPCS: 70450; 72020; 72125; 80048; 85025; 86850; 86900; 86901; 87081; 88305; 88313; 93005; 97116; 97162; 97166; 97530; 97535; C9250; J0131; J0690; J1100; J1170; J1200; J1644; J1885; J2250; J2270; J2405; J2710; J2765; J3010; J7030; J7999; L0174